=== PATIENT | female | born 1975 | race American Indian/Alaskan Native ===

== ENCOUNTER 2017-08-09 13:24 | Outpatient (CLI) | payer BC ==
--- NOTE | 2017-08-09 15:12 | Mammography Report ---
Screening mammogram: Routine views are compared to her prior study in 2013. The patient has a heterogeneously dense fibroglandular pattern which is symmetric in distribution. Scattered benign appearing calcifications are present in the right breast unchanged from prior study. There are 3 adjacent groupings of microcalcifications in the superolateral left breast that were not previously present. No soft tissue changes and the findings are not otherwise remarkable or change from prior study. CAD used. Impression: New left breast calcifications. Recommendation: Magnification views of left breast calcifications. BI-RADS CATEGORY: 0 = Needs additional imaging evaluation ACR BI-RADS MAMMOGRAPHIC CODES: 0 = Needs additional imaging evaluation; 1 = Negative; 2 = Benign; 3 = Probably benign; 4 = Suspicious; 5 = Malignant; 6 = Known biopsy-proven malignancy COMMENT: 1. Dense breast tissue, i.e., adenosis, fibrocystic changes, etc., may obscure an underlying neoplasm. 2. Approximately 10% of cancers are not detected with mammography. 3. A negative mammography report should not delay biopsy if a clinically suspicious mass is present.
== END 2017-08-09 13:25 | disposition home or self-care (01) ==
LOC: SPVWC 13:24
PROVIDERS: ATTEND Internal Medicine
DX: Z12.31 Encounter for screening mammogram for malignant neoplasm of breast (principal)
CPT/HCPCS: 77067; G0202

== ENCOUNTER 2017-08-18 11:14 | Outpatient (CLI) | payer BC ==
--- NOTE | 2017-08-18 12:03 | Mammography Report ---
LEFT DIGITAL DIAGNOSTIC MAMMOGRAM : 08/18/17 11:14:00 CLINICAL: Recalled to evaluate calcifications. COMPARISON:08/09/17 FINDINGS: MLand ML and CC magnification views were performed and demonstrate several groups of calcifications in the upper-outer quadrant. Three small groups of calcifications are identified within a 2 cm volume of breast tissue and the largest group is more anterior. Calcifications are pleomorphic with varying density and a few linear forms on the lateral view. No associated mass or architectural distortion. IMPRESSION: Calcifications in the upper-outer quadrant with suspicious morphology. Recommend stereotactic biopsy of the largest group. BI-RADS CATEGORY: 4--Suspicious RECOMMENDATION: Stereotactic biopsy of the left breast. I discussed the findings and the recommendation for stereotactic needle biopsy with the patient at the time of the examination. ACR BI-RADS MAMMOGRAPHIC CODES: 0 = Needs additional imaging evaluation; 1 = Negative; 2 = Benign; 3 = Probably benign; 4 = Suspicious; 5 = Malignant; 6 = Known biopsy-proven malignancy COMMENT: 1. Dense breast tissue, i.e., adenosis, fibrocystic changes, etc., may obscure an underlying neoplasm. 2. Approximately 10% of cancers are not detected with mammography. 3. A negative mammography report should not delay biopsy if a clinically suspicious mass is present. COMMENT: Patient follow-up letters are generated by our [employer] application.
== END 2017-08-18 11:15 | disposition home or self-care (01) ==
LOC: SPVWC 11:14
PROVIDERS: ATTEND Internal Medicine
DX: R92.1 Mammographic calcification found on diagnostic imaging of breast (principal)
CPT/HCPCS: G0206-LT

== ENCOUNTER 2017-09-14 08:43 | Outpatient (CLI) | payer BC ==
--- NOTE | 2017-09-14 10:18 | Mammography Report ---
LEFT DIGITAL DIAGNOSTIC MAMMOGRAM: 09/14/17 08:43:00 CLINICAL: For clip placement immediately status post stereotactic biopsy. COMPARISON:08/18/17 FINDINGS: A biopsy clip is now identified at the site of stereotactic biopsy. A few calcifications remain near the site. IMPRESSION: Removal of calcifications and concordant clip placement status post stereotactic biopsy. BI-RADS CATEGORY: 4--Suspicious Pathology pending.
--- NOTE | 2017-09-14 10:35 | Mammography Report ---
STEREOTACTIC VACUUM ASSISTED BIOPSY WITH CLIP PLACEMENT LEFT BREAST: 09/14/17 08:43:00 CLINICAL: Calcifications. COMPARISON:08/09/17 and 08/18/17 mammograms FINDINGS: Consent for the procedure was obtained. The previously described upper were targeted with stereotactic guidance. The skin was prepped with Betadine and anesthetized with 1% lidocaine. 2% lidocaine with epinephrine was injected for deeper anesthesia. 8 gauge Mammotome biopsy was performed from a approach through a small dermatotomy. Prefire and post-fire images demonstrated satisfactory positioning of the probe. Samples were obtained around the clock face. A specimen radiograph confirmed satisfactory sampling with removal of quality control representative calcifications. A clip was deployed at the biopsy site and the placement was confirmed with a radiograph. The probe was removed and hemostasis was achieved with mild pressure. A sterile dressing was applied. The patient tolerated the procedure well and there were no apparent complications. Two view mammogram demonstrated removal of calcifications and concordant placement of the biopsy clip. IMPRESSION: Uncomplicated stereotactic biopsy with clip placement left breast.
== END 2017-09-14 08:44 | disposition home or self-care (01) ==
LOC: SPVWC 08:43
PROVIDERS: ATTEND Surgery
DX: R92.0 Mammographic microcalcification found on diagnostic imaging of breast (principal)
CPT/HCPCS: 19081; 88305; 88361; G0206

== ENCOUNTER 2017-10-20 06:38 | Day surgery (SDC) | payer BC ==
[~2017-10-20 06:38] MED LIST: MARCAINE 0.25% INFILTRATI ONE; WATER FOR IRRIG STERILE IR ONE; XYLOCAINE 1% 20 mL INFILTRATI ONE
--- NOTE | 2017-10-20 07:41 | Anesthesia Consultation ---
Anesthesia Consult and Med Hx Date of service: 10/20/17 - Airway Anesthetic Teeth Evaluation: Good ROM Head & Neck: Adequate Mental/Hyoid Distance: Adequate Mallampati Class: Class II Intubation Access Assessment: Probably Good - Pulmonary Exam CTA: Yes - Cardiac Exam Cardiac Exam: RRR - Pre-Operative Health Status ASA Pre-Surgery Classification: ASA2 Proposed Anesthetic Plan: General Nerve Block: PEC - Pulmonary Hx Smoking: No Hx Asthma: No - Cardiovascular System Hx Hypertension: No - Central Nervous System Hx Psychiatric Problems: No - Endocrine Hx Non-Insulin Dependent Diabetes: No - Other Systems Hx Alcohol Use: Yes (OCCAS) Hx Substance Use: No Hx Cancer: Yes (breast)
--- NOTE | 2017-10-20 07:41 | Anesthesia Day of Surgery ---
Anesthesia Day of Surgery - Day of Surgery Patient Examined: Yes Patient H&P Reviewed: Yes Patient is NPO: Yes
[2017-10-20] MEDS ORDERED: XYLOCAINE 1% 20 mL ONE (07:53)
[2017-10-20] MEDS ORDERED: PEPCID PO NR (08:00)
[2017-10-20] MEDS ORDERED: SUBLIMAZE IV NR (08:00)
[2017-10-20] MEDS ORDERED: LACTATED RINGERS 1,000 ML IV SCH (08:00)
[2017-10-20] MEDS ORDERED: VERSED IV NR (08:00)
[2017-10-20] MEDS ORDERED: XYLOCAINE MPF 2% ONE (08:31)
[2017-10-20] MEDS ORDERED: SUBLIMAZE ONE (08:32)
[2017-10-20] MEDS ORDERED: DIPRIVAN 10 MG/ML IV ONE (08:32)
[2017-10-20] MEDS ORDERED: XYLOCAINE 1% 20 mL INFILTRATI ONE ×2 (09:00→09:42)
[2017-10-20] MEDS ORDERED: MARCAINE 0.25% INFILTRATI ONE ×2 (09:01→09:42)
[2017-10-20] MEDS ORDERED: ANCEF/STERILE WATER 2 GM/20 ML 2 GM/20 ML SYRINGE IV ONE (09:01)
--- NOTE | 2017-10-20 09:15 | Mammography Report ---
NEEDLE LOCALIZATION AND HOOKWIRE PLACEMENT LEFT BREAST:10/20/17 CLINICAL: Left breast cancer COMPARISON: 09/14/17 FINDINGS: Using mammographic guidance, 1% lidocaine local anesthesia and sterile technique, a 5.0-cm Coleman hookwire was placed from a approach to localize a biopsy clip.. Two views demonstrated satisfactory targeting. The hookwire was deployed and two additional orthogonal images were obtained. The patient tolerated the procedure well and there were no apparent complications. IMPRESSION: Uncomplicated hookwire placement left breast.
[2017-10-20] MEDS ORDERED: ANCEF/STERILE WATER 2 GM/20 ML IV NR (09:30)
[2017-10-20] MEDS ORDERED: DECADRON ONE (09:39)
[2017-10-20] MEDS ORDERED: DILAUDID ONE (09:46)
[2017-10-20] MEDS ORDERED: WATER FOR IRRIG STERILE IR ONE (10:26)
[2017-10-20] MEDS ORDERED: TORADOL ONE (10:27)
[2017-10-20] MEDS ORDERED: ZOFRAN ONE (10:28)
--- NOTE | 2017-10-20 10:29 | Short Stay Summary ---
Short Stay Documentation Date of service: 10/20/17 - History H&P: obtained from office - Allergies and Medications Current Medications: Allergies adhesive Allergy (Verified 10/14/17 16:02) METZ SKIN latex Allergy (Verified 10/14/17 16:01) METZ SKIN Home Medications Medication Instructions Recorded Confirmed Last Taken Type HYDROcodone/APAP 5-325 [Glen Arm 1 each PO Q6HR PRN #30 tablet 10/20/17 Unknown Rx 5/325] Active Medications Cefazolin Sodium (Ancef/Sterile Water 2 Gm/20 Ml) 2 gm IV PREOP NR Stop: 10/20/17 21:00 Famotidine (Pepcid) 20 mg PO PREOP NR Stop: 10/20/17 15:00 Last Admin: 10/20/17 08:37 Dose: 20 mg Fentanyl (Sublimaze) 100 mcg IV ONCE NR Stop: 10/20/17 15:00 Lactated Ringer's (Lactated Ringers) 1,000 mls @ 100 mls/hr IV DIRECT BRIONNA Last Admin: 10/20/17 08:37 Dose: 100 mls/hr Midazolam HCl (Versed) 2 mg IV PREOP NR Stop: 10/20/17 23:59 Last Admin: 10/20/17 08:37 Dose: 2 mg - Brief post op/procedure progress note Date of procedure: 10/20/17 Pre-op diagnosis: Left breast cancer of the upper outer quadrant Post-op diagnosis: same Procedure: Complex left needle localization partial mastectomy Anesthesia: GETA Findings: Wire and clip present within radiograph specimen Surgeon: HORTENCIA ROWLEY Log Sorter: TERESA FARNSWORTH Estimated blood loss: minimal Pathology: list (left partial mastectomy) Specimen disposition: to lab Condition: stable - Disposition Condition at discharge: Good Disposition: DC-01 TO HOME OR SELFCARE Short Stay Discharge Plan Activity: other (no heav lifting) Diet: regular Wound: other (keep incision clean and dry and may shower in 24 hours; no baths, pools or lakes) Follow up with: JALIL KRISHNA MD [Primary Care Provider] - 7 Days HORTENCIA ROWLEY MD [Staff Physician] - 7 Days Prescriptions: HYDROcodone/APAP 5-325 [Glen Arm 5/325] 1 each PO Q6HR PRN #30 tablet PRN Reason: Pain
--- NOTE | 2017-10-20 10:33 | Operative Report ---
Operative Report Operative Report: Date of Service: October 20, 2017 Preoperative diagnosis: Left breast cancer of the upper outer quadrant Postoperative diagnosis: Same Procedure: Left needle localization partial mastectomy of the upper outer quadrant Surgeon: Anny Paredes MD Machine Puller: Jennifer Huitron MD Anesthesia: General Findings: Left wire and clip present within radiograph specimen Complications: None EBL: Minimal Disposition: PACU in good condition Procedure in detail: This is a 42-year-old premenopausal lady with newly diagnosed left breast cancer of the upper outer quadrant. 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 Recommendations were to proceed with a partial mastectomy. Patient wished to proceed with the above procedure. Procedure in detail: The patient was taken to radiology for wire placement for localization of area of known cancer. Patient was then taken to the operating room. Gen. anesthesia was administered. The left breast was prepped and draped in the normal sterile operative fashion. The wire was identified. Timeout was performed. Lateral breast incision of the upper outer quadrant was made with a 15 blade knife and dissection taken down to subcutaneous tissues. First began raising of the superior flap with removal of the wire from the skin, follwed by raising of the lateral flap, then medial flap, followed by inferior flap. The breast area of concern of known cancer was appropriately removed posteriorly from the pectoralis muscle with the aid of the bovie cautery. The wire was not encountered. Specimen was marked and then sent to pathology and radiology; radiograph specimen with wire and clip present. Breast cavity was irrigated and hemostasis was obtained. The breast cavity was anesthetized with 1% lidocaine mixed with quarter percent Marcaine. Then proceeded with oncoplastic closure with moblization of the posterior breast tissues. The deep breast tissues were approximated and closed using interrupted 3-0 Vicryl followed by approximation of deep dermal subcutaneous tisues and closed using an interrupted 3-0 Vicryl. The skin was closed using a running 4-0 Monocryl followed by skin affix. The patient tolerated surgery very well and she was awaken from anesthesia without any complication and transported to PACU in good condition.
--- NOTE | 2017-10-20 10:41 | Mammography Report ---
SPECIMEN RADIOGRAPH LEFT BREAST: 10/20/17 06:38:00 CLINICAL: Surgical excision of a clip with known cancer. FINDINGS: The targeted localizer clip and hookwire are identified within the specimen. IMPRESSION: Excision of the targeted lesion.
[2017-10-20 17:43] VITALS: BP 126/94
== END 2017-10-20 12:35 | disposition home or self-care (01) ==
LOC: OR 06:38
PROVIDERS: ATTEND Surgery
DX: D05.12 Intraductal carcinoma in situ of left breast (principal); N64.89 Other specified disorders of breast; Z17.0 Estrogen receptor positive status [ER+]; Z80.41 Family history of malignant neoplasm of ovary; Z91.040 Latex allergy status; Z91.048 Other nonmedicinal substance allergy status; Z80.3 Family history of malignant neoplasm of breast; Z98.84 Bariatric surgery status; Z90.721 Acquired absence of ovaries, unilateral
CPT/HCPCS: 19281; 19301; 76098; 81025; 88307; J0690; J1100; J1170; J1885; J2250; J2405; J2704; J3010; J7120

== ENCOUNTER 2018-03-29 09:11 | Outpatient (CLI) | payer BC ==
--- NOTE | 2018-03-29 10:01 | Mammography Report ---
LEFT DIGITAL DIAGNOSTIC MAMMOGRAM WITH CAD: 03/29/18 09:11:00 CLINICAL: History of left breast cancer. Status post left partial mastectomy 09/14/17 for intermediate grade DCIS with no invasive component. COMPARISON:09/14/17 FINDINGS: Upper outer postsurgical scar with surgical clips.No mass, suspicious architectural distortion or suspicious calcifications. IMPRESSION: Benign postsurgical changes. BI-RADS CATEGORY: 2 -- Benign RECOMMENDATION: Bilateral mammogram in July 2018. ACR BI-RADS MAMMOGRAPHIC CODES: 0 = Needs additional imaging evaluation; 1 = Negative; 2 = Benign; 3 = Probably benign; 4 = Suspicious; 5 = Malignant; 6 = Known biopsy-proven malignancy COMMENT: 1. Dense breast tissue, i.e., adenosis, fibrocystic changes, etc., may obscure an underlying neoplasm. 2. Approximately 10% of cancers are not detected with mammography. 3. A negative mammography report should not delay biopsy if a clinically suspicious mass is present. COMMENT: Patient follow-up letters are generated via our [employer]igator application.
== END 2018-03-29 09:12 | disposition home or self-care (01) ==
LOC: SPVWC 09:11
PROVIDERS: ATTEND Surgery
DX: R92.8 Other abnormal and inconclusive findings on diagnostic imaging of breast (principal); Z85.3 Personal history of malignant neoplasm of breast; Z90.12 Acquired absence of left breast and nipple

== ENCOUNTER 2018-08-16 08:40 | Outpatient (CLI) | payer BC ==
--- NOTE | 2018-08-16 09:57 | Mammography Report ---
BILATERAL DIGITAL SCREENING MAMMOGRAM WITH CAD: 08/16/18 08:40:00 CLINICAL: Routine screening.Breast cancer survivor status post mastectomy left partial mastectomy 09/14/17 for intermediate grade DCIS with no invasive component. COMPARISON:03/29/18 left mammogram and 08/09/17 bilateral screening mammogram. FINDINGS: The breasts are heterogeneously dense, which may obscure small masses. The left breast is smaller than the right with stable upper postsurgical scar with surgical clips. Stable calcifications of the right breast with benign morphology. No mass, suspicious architectural distortion or suspicious calcifications. IMPRESSION: No mammographic evidence of malignancy. BI-RADS CATEGORY: 2 -- Benign RECOMMENDATION: Routine mammographic screening in one year. COMMENT: Patient follow-up letters are generated via our [employer] application.
== END 2018-08-16 08:41 | disposition home or self-care (01) ==
LOC: SPVWC 08:40
PROVIDERS: ATTEND Surgery
DX: Z12.31 Encounter for screening mammogram for malignant neoplasm of breast (principal); Z90.721 Acquired absence of ovaries, unilateral
CPT/HCPCS: 77067

== ENCOUNTER 2019-08-22 08:52 | Outpatient (CLI) | payer BC ==
--- NOTE | 2019-08-22 10:25 | Mammography Report ---
DIGITAL SCREENING MAMMOGRAM WITH CAD, 08/22/2019 INDICATION: Routine screening mammography. Breast cancer survivor status post left partial mastectomy for intermediate grade DCIS. TECHNIQUE: Digital bilateral 2D mammography was obtained in the craniocaudal and mediolateral obliq ue projections. This examination was interpreted with the benefit of Computer-Aided Detection analysi s. COMPARISON: 08/16/2018 and 08/09/2017 FINDINGS: Breast Density: The breasts are heterogeneously dense, which may obscure small masses. There is no evidence of dominant mass, suspicious calcifications or suspicious architectural distorti on in either breast. Benign left upper outer postsurgical scar with surgical clips. IMPRESSION: No mammographic evidence of malignancy. Follow up recommendation: Routine yearly BI-RADS Category 2: Benign. A "normal" or negative report should not discourage follow up or biopsy of a clinically significant f inding. A written summary of these findings will be mailed to the patient. The patient will be entered into a mammography reporting system which will generate a reminder letter for the patient's next appointmen t at the appropriate interval. The [employer] recommends yearly mammograms starting at age 40 and continuing as l cherise as a woman is in good health. Breast MRI is recommended for women with an approximate 20-25% or greater lifetime risk of breast cancer, including women with a strong family history of breast or ova sarahi cancer or who have been treated for Hodgkin's disease. Signer Name: Bean Morris MD Signed: 08/22/2019 10:20 AM Workstation Name: [id number]
== END 2019-08-22 08:53 | disposition home or self-care (01) ==
LOC: SPVWC 08:52
PROVIDERS: ATTEND Surgery
DX: Z12.31 Encounter for screening mammogram for malignant neoplasm of breast (principal); Z90.79 Acquired absence of other genital organ(s); Z90.721 Acquired absence of ovaries, unilateral
CPT/HCPCS: 77067

== ENCOUNTER 2020-08-27 08:28 | Outpatient (CLI) | payer BC ==
--- NOTE | 2020-08-27 09:26 | Mammography Report ---
DIGITAL SCREENING MAMMOGRAM WITH CAD, 08/27/2020 INDICATION: Routine screening mammography. SCREENING MAMMO TECHNIQUE: Digital bilateral 2D mammography was obtained in the craniocaudal and mediolateral obliq ue projections. This examination was interpreted with the benefit of Computer-Aided Detection analysi s. COMPARISON: 03/29/2018 through 08/22/2019. FINDINGS: Breast Density: There are scattered areas of fibroglandular density. Postlumpectomy and radiation changes in the left upper outer quadrant posteriorly are stable. Multipl e benign calcifications in the right breast are unchanged. No new abnormality is seen. IMPRESSION: No mammographic evidence of malignancy or significant change. Follow up recommendation: Routine yearly BI-RADS Category 2: Benign. A "normal" or negative report should not discourage follow up or biopsy of a clinically significant f inding. A written summary of these findings will be mailed to the patient. The patient will be entered into a mammography reporting system which will generate a reminder letter for the patient's next appointmen t at the appropriate interval. The [employer] recommends yearly mammograms starting at age 40 and continuing as l cherise as a woman is in good health. Breast MRI is recommended for women with an approximate 20-25% or greater lifetime risk of breast cancer, including women with a strong family history of breast or ova sarahi cancer or who have been treated for Hodgkin's disease. Signer Name: Chris Heath MD Signed: 08/27/2020 9:22 AM Workstation Name: [id number]
== END 2020-08-27 08:29 | disposition home or self-care (01) ==
LOC: SPVWC 08:28
PROVIDERS: ATTEND Surgery
DX: Z12.31 Encounter for screening mammogram for malignant neoplasm of breast (principal)
CPT/HCPCS: 77067